=== PATIENT | female | born 1955 | race Two or more races ===

== ENCOUNTER → 2019-05-10 | Outpatient (CLI) | payer OTHER ==
[~2019-05-10] MED LIST: CEPHALEXIN500 M1
== END | disposition home or self-care (01) ==
LOC: SONOGRAMA 09:14
DX: E04.2 Nontoxic multinodular goiter (principal)

== ENCOUNTER 2019-12-11 12:44 | Outpatient (CLI) | payer OTHER | END 2019-12-11 14:05 | disposition home or self-care (01) | LOC: RAD 12:44 → MAMO-SONO 13:15 → RAD 14:05 | DX: E04.2 Nontoxic multinodular goiter (principal); M25.462 Effusion, left knee | CPT/HCPCS: 73718 ==

== ENCOUNTER 2019-12-20 12:06 | Outpatient (CLI) | payer OTHER | END 2019-12-20 12:22 | disposition home or self-care (01) | LOC: NUCLEAR 12:06 | DX: M81.0 Age-related osteoporosis without current pathological fracture (principal) ==

== ENCOUNTER 2019-12-27 09:04 | Outpatient (CLI) | payer OTHER | END 2019-12-27 09:13 | disposition home or self-care (01) | LOC: LAB 09:04 | DX: R73.09 Other abnormal glucose (principal) ==

== ENCOUNTER 2020-01-01 09:32 | Outpatient (CLI) | payer OTHER | END 2020-01-01 09:37 | disposition home or self-care (01) | LOC: LAB 09:32 | DX: E03.8 Other specified hypothyroidism (principal); E21.2 Other hyperparathyroidism; R73.09 Other abnormal glucose ==

== ENCOUNTER → 2020-06-06 | Outpatient (CLI) | payer OTHER | END | disposition home or self-care (01) | LOC: MAMO-SONO 10:40 | PROVIDERS: ATTEND Obstetrics & Gynecology | DX: Z12.31 Encounter for screening mammogram for malignant neoplasm of breast (principal); N60.11 Diffuse cystic mastopathy of right breast; N60.12 Diffuse cystic mastopathy of left breast ==

== ENCOUNTER 2020-06-12 09:17 | Outpatient (CLI) | payer OTHER | END 2020-06-12 09:34 | disposition home or self-care (01) | LOC: LAB 09:17 | PROVIDERS: ATTEND Radiology Diagnostic Radiology | DX: R79.1 Abnormal coagulation profile (principal); E88.89 Other specified metabolic disorders; E03.8 Other specified hypothyroidism; E83.52 Hypercalcemia ==

== ENCOUNTER 2020-06-27 09:08 | Outpatient (CLI) | payer OTHER | END 2020-06-27 09:16 | disposition home or self-care (01) | LOC: LAB 09:08 | PROVIDERS: ATTEND Internal Medicine | DX: E83.52 Hypercalcemia (principal) ==

== ENCOUNTER → 2020-07-31 09:11 | Outpatient (CLI) | payer OTHER | END | disposition home or self-care (01) | LOC: LAB 09:11 | PROVIDERS: ATTEND Internal Medicine | DX: E21.2 Other hyperparathyroidism (principal) ==

== ENCOUNTER 2020-08-21 07:29 | Outpatient (CLI) | payer OTHER | END 2020-08-21 07:56 | disposition home or self-care (01) | LOC: NUCLEAR 07:29 | DX: E21.3 Hyperparathyroidism, unspecified (principal) | CPT/HCPCS: 78072; A9500 ==

== ENCOUNTER 2020-10-18 10:22 | Outpatient (CLI) | payer OTHER | END 2020-10-18 10:36 | disposition home or self-care (01) | LOC: LAB 10:22 | DX: E03.8 Other specified hypothyroidism (principal); E21.2 Other hyperparathyroidism; E55.9 Vitamin D deficiency, unspecified ==

== ENCOUNTER → 2021-01-13 | Outpatient (CLI) | payer OTHER | END | disposition home or self-care (01) | LOC: MAMO-SONO 09:15 → RAD 10:45 → SONOGRAMA 10:45 | PROVIDERS: ATTEND Internal Medicine Endocrinology, Diabetes & Metabolism | DX: E04.2 Nontoxic multinodular goiter (principal); R92.2 Inconclusive mammogram; R92.0 Mammographic microcalcification found on diagnostic imaging of breast; M79.622 Pain in left upper arm; M25.512 Pain in left shoulder ==

== ENCOUNTER 2021-01-24 10:47 | Outpatient (CLI) | payer OTHER | END 2021-01-24 10:52 | disposition home or self-care (01) | LOC: LAB 10:47 | PROVIDERS: ATTEND Internal Medicine Endocrinology, Diabetes & Metabolism | DX: E03.8 Other specified hypothyroidism (principal); E11.65 Type 2 diabetes mellitus with hyperglycemia; E55.9 Vitamin D deficiency, unspecified; E04.2 Nontoxic multinodular goiter; E21.2 Other hyperparathyroidism ==

== ENCOUNTER 2022-01-25 13:51 | Outpatient (CLI) | payer OTHER | END 2022-01-25 13:52 | disposition home or self-care (01) | LOC: SONOGRAMA 13:51 | PROVIDERS: ATTEND Internal Medicine Endocrinology, Diabetes & Metabolism | DX: E04.2 Nontoxic multinodular goiter (principal) ==

== ENCOUNTER 2022-04-30 08:05 | Outpatient (CLI) | payer OTHER | END 2022-05-10 14:20 | disposition home or self-care (01) | LOC: MAMO-SONO 08:05 | PROVIDERS: ATTEND Obstetrics & Gynecology | DX: N60.11 Diffuse cystic mastopathy of right breast (principal); N60.12 Diffuse cystic mastopathy of left breast ==

== ENCOUNTER 2022-10-19 12:32 | Outpatient (CLI) | payer OTHER | END 2022-10-19 12:44 | disposition home or self-care (01) | LOC: MRI 12:32 | PROVIDERS: ATTEND Internal Medicine | DX: M25.561 Pain in right knee (principal); M25.562 Pain in left knee | CPT/HCPCS: 73718 ==

== ENCOUNTER 2023-07-22 06:43 | Outpatient (CLI) | payer OTHER | END 2023-07-22 07:10 | disposition home or self-care (01) | LOC: MAMO-SONO 06:43 | PROVIDERS: ATTEND Radiology Diagnostic Radiology | DX: Z12.31 Encounter for screening mammogram for malignant neoplasm of breast (principal) ==

== ENCOUNTER → 2024-07-30 | Outpatient (CLI) | payer OTHER | END | disposition home or self-care (01) | LOC: MAMO-SONO 13:12 | PROVIDERS: ATTEND Internal Medicine | DX: N60.11 Diffuse cystic mastopathy of right breast (principal); N60.12 Diffuse cystic mastopathy of left breast; Z12.31 Encounter for screening mammogram for malignant neoplasm of breast ==

== ENCOUNTER 2025-01-31 10:17 | Outpatient (CLI) | payer OTHER | END 2025-01-31 10:30 | disposition home or self-care (01) | LOC: SONOGRAMA 10:17 | PROVIDERS: ATTEND Internal Medicine Endocrinology, Diabetes & Metabolism | DX: E03.8 Other specified hypothyroidism (principal); M81.0 Age-related osteoporosis without current pathological fracture ==

== ENCOUNTER 2025-10-14 07:42 | Outpatient (CLI) | payer OTHER | END 2025-10-14 14:01 | disposition home or self-care (01) | LOC: MAMO-SONO 07:42 | DX: Z12.39 Encounter for other screening for malignant neoplasm of breast (principal); Z12.31 Encounter for screening mammogram for malignant neoplasm of breast ==